=== PATIENT | male | born 1960 | race Caucasian/White ===

== ENCOUNTER 2017-04-20 04:45 | Inpatient (IN) | payer MEDICAID ==
[2017-04-20] MEDS ORDERED: cefOXitin 2 GM Vial ONE (07:03)
[2017-04-20] MEDS ORDERED: Dexamethasone 4 MG/ML SDV ONE (07:47)
[2017-04-20] MEDS ORDERED: Neostigmine Methylsulfate 1 MG/ML 5 ML Syringe ONE (07:47)
[2017-04-20] MEDS ORDERED: Succinylcholine 200 MG/10 ML MDV ONE (07:47)
[2017-04-20] MEDS ORDERED: Ondansetron 4 MG/2 ML SDV ONE (07:47)
[2017-04-20] MEDS ORDERED: Rocuronium 50 MG/5 ML Vial ONE (07:47)
[2017-04-20] MEDS ORDERED: Glycopyrrolate 0.2 MG/ML 5 ML MDV ONE (07:47)
[2017-04-20] MEDS ORDERED: Propofol 200 MG/20 ML SDV ONE (07:47)
[2017-04-20] MEDS ORDERED: fentaNYL 250 MCG/5 ML SDV ONE (07:48)
[2017-04-20] MEDS ORDERED: Gabapentin 300 MG Cap PO ONE (09:00)
[2017-04-20] MEDS ORDERED: Acetaminophen 500 MG Tab PO ONE (09:00)
[2017-04-20] MEDS ORDERED: Dextrose 5%-Lactated Ringers 1,000 ML IV SCH (09:00)
[2017-04-20] MEDS ORDERED: Scopolamine 1.5 MG Transdermal Patch TOP SCH (09:00)
[2017-04-20] MEDS ORDERED: Celecoxib 200 MG Cap PO ONE (09:00)
[2017-04-20] MEDS ORDERED: cefOXitin 2 GM in Premix Bag 1 BAG IV ONE (09:00)
[2017-04-20] MEDS ORDERED: Lidocaine 2% 100 MG/5 ML Syringe IVPUSH ONE (10:15)
[2017-04-20] MEDS ORDERED: Ketamine 500 MG/5 ML MDV IV ONE (10:15)
[2017-04-20] MEDS ORDERED: Ropivacaine 54 ML, Dexamethasone 8 MG, EPINEPHrine 0.4 MG, Sodium Chloride 0.9% 23.6 ML NERVRT ONE ×4 (10:15)
[2017-04-20] MEDS ORDERED: Lactated Ringers 1,000 ML ONE ×2 (13:56)
[2017-04-20] MEDS ORDERED: Insulin Aspart 100 Units/ML 3 ML Pen SUBCUT ONE ×2 (14:50→16:45)
[2017-04-20] MEDS ORDERED: hydrOXYzine HCl 100 MG/2 ML SDV IM PRN (16:00)
[2017-04-20] MEDS: Lidocaine 0.4%/D5W 2 GM/500 ML BAG IV SCH (16:00)
[2017-04-20] MEDS ORDERED: diphenhydrAMINE 50 MG/ML SDV IVPUSH PRN (16:00)
[2017-04-20] MEDS ORDERED: 50% Dextrose in Water 50 ML Syringe IVPUSH PRN (16:00)
[2017-04-20] MEDS ORDERED: Metoclopramide 10 MG/2 ML SDV IVPUSH PRN (16:00)
[2017-04-20] MEDS ORDERED: Glucagon,Human Recombinant 1 MG Vial IM PRN (16:00)
[2017-04-20] MEDS ORDERED: Labetalol 20 MG/4 ML Syringe IVPUSH PRN (16:00)
[2017-04-20] MEDS ORDERED: Ondansetron 4 MG/2 ML SDV IVPUSH PRN (16:00)
[2017-04-20] MEDS: MVI, Adult with Vitamin K 10 ML, Thiamine 200 MG, Chromium/Copper/Mang/Selen/Zn 1 ML in... IV SCH ×4 (16:39)
[2017-04-20] MEDS ORDERED: Insulin Detemir 100 Units/ML 3 ML Pen SUBCUT ONE ×2 (16:45→21:00)
[2017-04-20] MEDS: Acetaminophen Soln 650 MG/20.3 ML UD Cup PO SCH (17:37)
[2017-04-20] MEDS: Heparin Sodium 5,000 Units/ML Vial SUBCUT SCH (17:37)
[2017-04-20] MEDS: cefOXitin 2 GM in Sodium Chloride 0.9% 50 ML IV SCH (17:37)
[2017-04-20] MEDS ORDERED: Pantoprazole 40 MG Vial IVPUSH SCH (18:00)
[2017-04-20] MEDS: Gabapentin 250 MG/5 ML Solution ML 470 ML Bottle PO SCH (21:32)
[2017-04-20] MEDS: Insulin Aspart 100 Units/ML 3 ML Pen SUBCUT PRN (21:49)
[2017-04-20] MEDS: Dextrose 5%-Lactated Ringers 1,000 ML IV SCH (23:05)
[2017-04-21] MEDS: Acetaminophen Soln 650 MG/20.3 ML UD Cup PO SCH ×4 (00:08→18:18)
[2017-04-21] MEDS: cefOXitin 2 GM in Sodium Chloride 0.9% 50 ML IV SCH ×3 (00:08→11:12)
[2017-04-21] MEDS ORDERED: Iohexol 647 MG/ML 50 ML SDV PO STA (02:29)
[2017-04-21] MEDS: Heparin Sodium 5,000 Units/ML Vial SUBCUT SCH ×3 (02:32→18:18)
[2017-04-21] MEDS ORDERED: Insulin Aspart 100 Units/ML 3 ML Pen SUBCUT STA (04:46)
[2017-04-21] MEDS: Lidocaine 0.4%/D5W 2 GM/500 ML BAG IV SCH (04:56)
[2017-04-21] MEDS: Dextrose 5%-Lactated Ringers 1,000 ML IV SCH (04:58)
[2017-04-21] MEDS ORDERED: Lactated Ringers 1,000 ML IV SCH (08:00)
[2017-04-21] MEDS ORDERED: Sodium Chloride 0.65% Nasal Spray 45 ML Bottle NASBOTH PRN (08:01)
[2017-04-21] MEDS ORDERED: Insulin Detemir 100 Units/ML 3 ML Pen SUBCUT ONE (08:30)
--- NOTE | 2017-04-21 08:37 | CR ---
UGI wo KUB HISTORY: eval R -Y GBP FINDINGS: After administration of oral contrast, upright views were obtained. Post operative changes gastric bypass. Surgical drain in place. No evidence for leak. Contrast passes freely into proximal s mall bowel loops. IMPRESSION: No evidence for leak or obstruction.
[2017-04-21] MEDS: Celecoxib 200 MG Cap PO SCH (10:27)
[2017-04-21] MEDS: Metoprolol Succinate 25 MG Tab.ER PO SCH (10:30)
[2017-04-21] MEDS: SCOPOLAMINE PATCH CHECK TOP SCH (10:30)
[2017-04-21] MEDS: Aspirin 325 MG Tab.EC PO SCH (10:30)
[2017-04-21] MEDS: Chlorthalidone 25 MG Tab PO SCH (10:31)
[2017-04-21] MEDS: metFORMIN 500 MG Tab PO SCH ×2 (10:31→16:32)
[2017-04-21] MEDS: Gabapentin 250 MG/5 ML Solution ML 470 ML Bottle PO SCH ×3 (10:49→22:44)
[2017-04-21] MEDS: Losartan 50 MG Tab PO SCH (10:49)
[2017-04-21] MEDS: Pantoprazole 40 MG Delayed-Release Granules 1 Packet PO SCH (11:11)
[2017-04-21] MEDS: MVI, Adult with Vitamin K 10 ML, Thiamine 200 MG, Chromium/Copper/Mang/Selen/Zn 1 ML in... IV SCH ×4 (16:22)
[2017-04-21] MEDS: Insulin Detemir 100 Units/ML 3 ML Pen SUBCUT SCH (16:29)
[2017-04-21] MEDS: Insulin Aspart 100 Units/ML 3 ML Pen SUBCUT PRN ×2 (16:30→22:37)
[2017-04-21] MEDS ORDERED: Non-Formulary Medication 1 Each (Metformin [Glucophage] 1,000 MG) PO SCH (17:00)
[2017-04-21] MEDS: Amitriptyline 25 MG Tab PO SCH (22:36)
[2017-04-22] MEDS: Acetaminophen Soln 650 MG/20.3 ML UD Cup PO SCH ×4 (01:11→17:58)
[2017-04-22] MEDS: Heparin Sodium 5,000 Units/ML Vial SUBCUT SCH ×3 (01:11→17:58)
[2017-04-22] MEDS: Insulin Aspart 100 Units/ML 3 ML Pen SUBCUT PRN ×4 (05:05→21:41)
[2017-04-22] MEDS: metFORMIN 500 MG Tab PO SCH ×2 (08:38→16:48)
[2017-04-22] MEDS: Chlorthalidone 25 MG Tab PO SCH (08:38)
[2017-04-22] MEDS: Celecoxib 200 MG Cap PO SCH (08:38)
[2017-04-22] MEDS: Losartan 50 MG Tab PO SCH (08:38)
[2017-04-22] MEDS: Aspirin 325 MG Tab.EC PO SCH (08:39)
[2017-04-22] MEDS: Insulin Detemir 100 Units/ML 3 ML Pen SUBCUT SCH ×3 (08:39→21:27)
[2017-04-22] MEDS: Metoprolol Succinate 25 MG Tab.ER PO SCH (08:40)
[2017-04-22] MEDS: Gabapentin 250 MG/5 ML Solution ML 470 ML Bottle PO SCH ×3 (08:42→21:33)
[2017-04-22] MEDS: SCOPOLAMINE PATCH CHECK TOP SCH (08:43)
[2017-04-22] MEDS ORDERED: Cyanocobalamin (Vitamin B12) 1,000 MCG/ML SDV IM ONE (09:00)
--- NOTE | 2017-04-22 10:19 | PN ---
DATE OF SERVICE: 04/22/2017 HISTORY OF PRESENT ILLNESS: Gaurav reports the pain is controlled. He has been up ambulating. Oral intake 1500, output 1900. He has had 2 bowel movements. He would like to go home, but the fact that he lives an hour [place] a half away and his blood sugars have been elevated, he does need to stay to get these better regulated. His blood sugars the last 24 hours have been 241, 327, 327, and this morning 219. REVIEW OF SYSTEMS: Remainder of review of systems negative for any pertinent positives and negatives. PHYSICAL EXAMINATION: GENERAL: Gaurav Naranjo is a pleasant 57-year-old male. VITAL SIGNS: TPR is 98.3, 74, 18, blood pressure 143/79. HEENT: Negative. NECK: Supple. HEART: Regular rate and rhythm. LUNGS: Clear. ABDOMEN: Dressings dry and intact. Abdominal binder is on. His LEONARD drain has been draining a light pink serosanguineous drainage over the past 24 hours, it has drained 80 mL. EXTREMITIES: Without peripheral edema. ASSESSMENT: Laparoscopic Dilia-en-Y gastric bypass surgery, liver biopsy, and peridiaphragmatic hernia for excisional mediastinal lipoma, date of surgery 04/20/2017. PLAN: Saline lock IV. Give Levemir 20 units b.i.d. We will evaluate p.r.n. or in a.m. Lisa Fiore PA-C /[id number]
--- NOTE | 2017-04-22 10:52 | PN ---
DATE OF SERVICE: 04/21/2017 SUBJECTIVE: Gaurav is postoperative day #1, following a Dilia-en-Y gastric bypass surgery. He continues to be on the lidocaine drip. He is having no problems. Oral intake is 60 mL, but he states he has drank more than that. His urine output was 3725. LEONARD drain put out 170 of a light pink drainage. Blood sugars have been elevated at 313, 380, 302, and 355. He has been up ambulating. He states the pain is controlled. OBJECTIVE: GENERAL: Gaurav Naranjo is a 57-year-old male. VITAL SIGNS: TPR, temperature is 100 with a temp max of 100.2 in the past 24 hours, pulse is 102, respirations are 16, and blood pressure is 151/88. HEENT: Negative. NECK: Supple. HEART: Regular rate and rhythm. LUNGS: Clear. ABDOMEN: Dressings are dry and intact. LEONARD drain was intact, draining a light red drainage. Abdominal binder is on. EXTREMITIES: SCDs are on, and there is no peripheral edema. ASSESSMENT: Laparoscopic Dilia-en-Y gastric bypass surgery, liver biopsy, repair of diaphragmatic hernia, and excision of mediastinal lipoma for morbid obesity, hepatomegaly, diaphragmatic hernia, and mediastinal lipoma. DATE OF SURGERY: 04/20/2017 by Saeed Espinosa MD. PLAN: 1. Rx 30 units of Levemir now. 2. IV LR 100 mL/hr. 3. Discontinue D5LR IV. 4. Metformin 1000 mg p.o. b.i.d. 5. Step 2 gastric bypass diet without cereal. 6. Levemir 25 units subq b.i.d. starting with afternoon dose. HOME MEDICATIONS: 1. Restarted Elavil 25 mg p.o. at bedtime. 2. Aspirin 325 mg p.o. daily. 3. Chlorthalidone 25 mg p.o. daily. 4. Trulicity 1.5 mg subq weekly. 5. Losartan 100 mg p.o. daily. 6. Metoprolol 25 mg p.o. daily. 7. Omeprazole 20 mg p.o. b.i.d. 8. [place] spray nasal spray, two sprays in each nostril p.r.n. for congestion. 9. Good pulmonary toilet. 10.Will evaluate p.r.n. or in a.arnoldo Fiore PA-C /[id number]
[2017-04-22] MEDS: Pantoprazole 40 MG Delayed-Release Granules 1 Packet PO SCH (11:25)
[2017-04-22] MEDS: Amitriptyline 25 MG Tab PO SCH (21:27)
[2017-04-23] MEDS: Heparin Sodium 5,000 Units/ML Vial SUBCUT SCH ×2 (01:08→09:16)
[2017-04-23] MEDS: Acetaminophen Soln 650 MG/20.3 ML UD Cup PO SCH ×2 (01:08→05:15)
[2017-04-23] MEDS: Insulin Aspart 100 Units/ML 3 ML Pen SUBCUT PRN ×2 (05:11→10:47)
--- NOTE | 2017-04-23 07:53 | DISCH ---
ADMISSION DIAGNOSES: 1. Morbid obesity. Body mass index is 36.2. 2. Hypertension. 3. Major depression disorder. 4. Hypercholesterolemia with hypertriglyceridemia. 5. Gastroesophageal reflux disease. 6. Chronic right shoulder pain. 7. Insomnia. 8. Obstructive sleep apnea, on CPAP. 9. Noncompliance with medication regimen. 10.Erectile dysfunction. 11.Hypogonadism male. 12.Diabetes type 2 with complications uncontrolled. 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 14.Neuropathy. 15.Maladaptive behaviors affecting medical condition. DISCHARGE DIAGNOSES: Laparoscopic Dilia-en-Y gastric bypass surgery, liver biopsy, and diaphragmatic hernia with excision of mediastinal lipoma for morbid obesity, hepatomegaly, paraesophageal diaphragmatic hernia, and mediastinal lipoma. Date of surgery 04/20/2017. Surgeon, Saeed Espinosa MD. HISTORY: Gaurav Naranjo is a 57-year-old male with longstanding history of morbid obesity and increasing comorbidities. Blood sugars have been his main comorbidity at this time along with noncompliance with medication regimen. After preoperative evaluation and discussion of possible risks and possible complications, he wished to proceed with surgical procedure. HOSPITAL COURSE: Gaurav had his surgery on 04/20/2017. He had no operative complications. On postop day #1, his upper GI was normal. He was started on a step-2 with no cereal gastric bypass diet. His blood sugars were monitored throughout the hospital stay adjusting Levemir and he continued to take the metformin 1000 mg b.i.d. Gaurav requests to go home. On postop day 3, his blood sugars are still elevated but he states he will call with results once he is home. PHYSICAL EXAMINATION: GENERAL: Gaurav Naranjo is a 57-year-old male VITAL SIGNS: Height is 5 feet 7 inches. Weight is 231 pounds. BMI is 36.2. TPR 99.2, 80, 16, blood pressure 126/76. HEENT: Negative. NECK: Supple. HEART: Regular rate and rhythm. LUNGS: Clear. ABDOMEN: 4x4 over LEONARD drain site. Incisions look good. Soft and nontender. He has had 2 bowel movements. EXTREMITIES: Without peripheral edema. Oral intake 24 hours prior to discharge was 1210, output was 1000. DISPOSITION: Discharged to home. CONDITION: Stable and improving. FOLLOWUP APPOINTMENT: With Lisa Fiore PA-C, on 04/28/2017 at 12:30 p.m.. HOME MEDICATIONS: Celebrex 200 mg p.o. daily 14 days, Levemir 30 units subcu twice daily, metformin 1000 mg b.i.d. orally, aspirin 325 mg oral daily, Elavil 25 mg oral at bedtime, chlorthalidone 25 mg oral daily, Trulicity 1.5 mg subcu weekly. He is next due for this on Wednesday. Vitamin D2 50,000 units as directed, Zetia 10 mg oral daily, Tricor 145 mg oral daily, Neurontin 600 mg oral 3 times a day, Cozaar 100 mg oral daily, metoprolol XL 25 mg oral daily, Prilosec 20 mg oral twice daily, [place] nasal drops 2 sprays in each nostril p.r.n. congestion, Lipitor 80 mg oral at bedtime. Discontinue taking Toujeo and Humalog. DIET: After discharge, step 2 gastric bypass diet with no cereal until 05/04/2017. Drink 8- 10 glasses of water a day. ACTIVITY: No lifting greater than 10 pounds for 2 weeks, walk inside your home at least 6 times daily. Driving, do not drive for 1 week. Shower/bathing, may shower. Wear abdominal binder for 2 weeks and then as tolerated. Notify provider if any fever, increased pain, swelling, redness, drainage, nausea, vomiting. SPECIAL INSTRUCTIONS: 1. Check blood sugars 4 times a day and record results. Call hospital at [phone] on Wednesday and Wednesday with blood sugar results. Wednesday call the clinic at [phone] with your blood sugar results. 2. Use incentive spirometer 10 times in a row every hour while awake for 1 week. 3. Write down everything you eat and drink and bring to clinic appointments.
[2017-04-23] MEDS ORDERED: Insulin Detemir 100 Units/ML 3 ML Pen SUBCUT SCH (09:00)
[2017-04-23] MEDS: Celecoxib 200 MG Cap PO SCH (09:15)
[2017-04-23] MEDS: Chlorthalidone 25 MG Tab PO SCH (09:15)
[2017-04-23] MEDS: metFORMIN 500 MG Tab PO SCH (09:15)
[2017-04-23] MEDS: Losartan 50 MG Tab PO SCH (09:16)
[2017-04-23] MEDS: Metoprolol Succinate 25 MG Tab.ER PO SCH (09:16)
[2017-04-23] MEDS: Aspirin 325 MG Tab.EC PO SCH (09:17)
[2017-04-23] MEDS: Gabapentin 250 MG/5 ML Solution ML 470 ML Bottle PO SCH (09:19)
--- NOTE | 2017-04-26 13:07 | OR ---
DATE OF PROCEDURE: 04/20/2017 PREOPERATIVE DIAGNOSIS: Morbid obesity. POSTOPERATIVE DIAGNOSES: 1. Morbid obesity. 2. Marked hepatomegaly. 3. Paraesophageal diaphragmatic hernia. 4. Mediastinal lipoma. OPERATIVE PROCEDURES: Diagnostic laparoscopy with: 1. Laparoscopic Dilia-en-Y gastric bypass with long limb gastroenterostomy (14378). 2. Kenneth-Cut needle liver biopsy (70427). 3. Repair of paraesophageal diaphragmatic hernia (30470). 4. Excision of mediastinal lipoma (36683). ANESTHESIA: General. PARTS REPRESENTATIVE: Lisa Fiore PA-C. INDICATIONS FOR PROCEDURE: This is a 57-year-old presenting with longstanding morbid obesity and increasingly significant comorbidities. After preoperative evaluation and discussion, he wished to proceed with a gastric bypass procedure. Potential risks of the procedure including bleeding, infection, leaks from various GI tract closures, problems with bowel obstruction over time as well as possibility of cardiopulmonary, septic, or hemorrhagic complications leading to were discussed, and the patient wishes to proceed. DETAILS OF PROCEDURE: The patient was taken to the operating room and placed in a supine position. After general endotracheal anesthesia was induced, converted to a lithotomy position and the abdomen prepped and draped and an orogastric tube was also placed. At 15 cm inferior, 5 cm left of xiphoid process, a transverse incision was made and peritoneal cavity entered under direct vision with an Optiview trocar inflated to 15 mmHg pressure with CO2. Laparoscope was reinserted. No underlying trocar insertion site injuries were seen. Following this, bilateral subcostal transversus abdominis plane blocks were placed using standard solution. Visualization of the plane from within the abdomen was used to monitor the location of the needle, just stuck up below the peritoneum which would correspond transversus abdominis plane. After this was completed, five additional trocars were placed across the upper and mid abdomen. General exploration was undertaken. The patient was noted to have quite striking hepatomegaly and fatty infiltration of the liver. Kenneth-Cut needle biopsy was obtained from the left lobe of the liver. Minimal bleeding from the biopsy sites was controlled with electrocautery. The omentum was then divided in the midline up to the level of the transverse colon. This allowed identification of the small bowel to the ligament of Treitz. Small bowel was then traced out 225 cm distal to that point, where it was divided transversely with a UTE stapler. Small bowel was then traced out additional 225 cm where the [id number] enteroenterostomy was accomplished with internal firing of the Endo-UTE 60 mm stapler. The common opening was then closed transversely with the same stapler and the angles anastomosed, and mesenteric defect approximated with some 0 Ethibond stitch along with fibrin sealant. The divided end of the Dilia limb was then from the mesentery for a few centimeters, which allowed an antecolic position of the Dilia limb up to the level of the gastroesophageal junction without tension. The liver was then retracted anteriorly, and the patient was noted to have a significant paraesophageal diaphragmatic hernia. This again included sub-perigastric fat as well as the fundus of the stomach along with the tongue of omentum following a plane anterior to the course of the esophagus, this was reduced. The peritoneum overlying it was incised and reflected downward. During the course of the dissection, the mediastinal lipoma was encountered and this was excised as well to facilitate a more adequate closure of the diaphragmatic hernia. The repair was then accomplished with an anterior set of sutures and with PTFE pledgets. At this point, the gastrointestinal catheter was inflated to 15 mL and pulled up snugly against the EG junction. Gastric wall over the [place] balloon was then marked with electrocautery, and balloon catheter deflated and pulled up in the esophagus. The lesser omental tissue adjacent to gastric cardia was then incised allowing dissection behind the stomach at that level. Pouch formation was initiated with a transverse firing of the UTE stapler at the level of the cauterized zach in the gastric cardia and then completed with several additional firings of UTE stapler up to and through the angle of His. Upon completion of the pouch, both staple lines were noted to be intact. The anvil of a 25 mm stapler was attached to [place] sump-type tube. The latter was brought down through the mouth and taken out through a small opening in the gastric pouch allowing the anvil likewise to be pulled down to within the gastric pouch. The divided end of the Dilia limb was then opened and the main body of the EEA stapler passed several centimeters in the lumen of the small bowel, brought up the anvil and united with it, thus creating the gastrojejunostomy. Upon removal of the stapler, double donuts of mucosa were noted within it. The small bowel was closed off with a vascular staple line. Gastrojejunostomy was then reinforced with some 3-0 Vicryl seromuscular stitch along with fibrin sealant. Leak test was accomplished with injection of 120 mL of air in the gastric pouch while submerged with cefoxitin-containing saline solution. No leaks were identified. A single [place] drain was then taken out through the left lateral trocar site and placed adjacent to the gastrojejunostomy and from there up over the spleen entering the splenic fossa with no further problems noted. Trocars were removed. The peritoneal cavity deflated. The incision was closed with some 4-0 Vicryl skin stitch and drains affixed likewise with 4-0 Vicryl stitch. The patient was taken to the recovery room in satisfactory condition. Physician case management assistant, Lisa Fiore, played an essential role in assisting in this case, helping to position the patient, retract structures as needed, as well as suturing and cutting sutures when indicated. Her presence improved the patient safety and decreased the operative time. Saeed Espinosa MD /[id number]
== END 2017-04-23 11:10 | disposition home or self-care (01) | DRG 621 ==
LOC: JP.MS 04:45 → JP.SDS 04:46 → EDSTATUS 10:00 → JP.2SS 14:30
PROVIDERS: ADMIT Surgery; ATTEND Surgery
PROC: 0D164ZA Bypass Stomach to Jejunum, Percutaneous Endoscopic Approach (ICD-10-PCS; principal; 2017-04-20)
PROC: 0FB24ZX Excision of Left Lobe Liver, Percutaneous Endoscopic Approach, Diagnostic (ICD-10-PCS; 2017-04-20)
PROC: 0WBC4ZX Excision of Mediastinum, Percutaneous Endoscopic Approach, Diagnostic (ICD-10-PCS; 2017-04-20)
PROC: 0BQT4ZZ Repair Diaphragm, Percutaneous Endoscopic Approach (ICD-10-PCS; 2017-04-20)
PROC: 3E0T3BZ Introduction of Anesthetic Agent into Peripheral Nerves and Plexi, Percutaneous Approach (ICD-10-PCS; 2017-04-20)
DX: E66.01 Morbid (severe) obesity due to excess calories (principal); K44.9 Diaphragmatic hernia without obstruction or gangrene; R16.0 Hepatomegaly, not elsewhere classified; Z68.37 Body mass index [BMI] 37.0-37.9, adult; I10 Essential (primary) hypertension; M17.11 Unilateral primary osteoarthritis, right knee; F32.9 Major depressive disorder, single episode, unspecified; K21.9 Gastro-esophageal reflux disease without esophagitis; E78.00 Pure hypercholesterolemia, unspecified; G47.33 Obstructive sleep apnea (adult) (pediatric); E11.40 Type 2 diabetes mellitus with diabetic neuropathy, unspecified; Z79.4 Long term (current) use of insulin; Z79.82 Long term (current) use of aspirin; Z91.040 Latex allergy status; Z88.8 Allergy status to other drugs, medicaments and biological substances; Z91.048 Other nonmedicinal substance allergy status; D17.4 Benign lipomatous neoplasm of intrathoracic organs; Z91.14 Patient's other noncompliance with medication regimen; E78.1 Pure hyperglyceridemia; M25.511 Pain in right shoulder; G47.00 Insomnia, unspecified; E29.1 Testicular hypofunction; H49.11 Fourth [trochlear] nerve palsy, right eye; N52.9 Male erectile dysfunction, unspecified; K76.0 Fatty (change of) liver, not elsewhere classified
CPT/HCPCS: 36415; 74240; 74240-26; 82962; 86850; 86900; 86901; 88304; 88307; 88313; 94762; A9270-GY; C9113; J0171; J0330; J0694; J1100; J1644; J2001; J2405; J2704; J2710; J2795; J3010; J3411; J3420; J7030; J7040; J7042; J7050; J7120; Q9967